=== PATIENT | female | born 1970 | race Caucasian/White ===

== ENCOUNTER 2024-04-06 10:04 | Emergency (ER) | payer MEDICAID, SELFPAY ==
--- NOTE | ~2024-04-06 | CT_ITS ---
EXAMINATION: CT head/brain wo IV con (accession [id number]) CT cervical spine wo IV con (accession [id number]) CLINICAL INFORMATION: fall, pain, injury COMPARISON: None TECHNIQUE: Separate noncontrast CT examinations of the head and cervical spine were performed. Coronal and sagittal reformats were obtained at the acquisition workstation. This CT examination was performed using dose optimization techniques as appropriate, variously including the following: * Automated exposure control * Adjustment of mA and/or kV according to patient size (this includes techniques or standardized protocols for targeted exams where dose is matched to indication/reason for exam; i.e. extremities or head) * Use of iterative reconstruction technique DLP: 768 mGy-cm FINDINGS: HEAD: There is no evidence of acute intracranial hemorrhage or territorial infarction. Lyles to white matter differentiation is well preserved. No abnormal mass effect or midline shift is seen. No extra-axial fluid collections are identified. No hydrocephalus. No significant volume loss. There is no abnormal attenuation within the brain parenchyma. The cerebellar tonsils are well positioned. Soft tissue laceration over the left frontal bone without underlying calvarial fracture. Visualized portions of the orbits are unremarkable. The mastoid air cells and visualized portions of the paranasal sinuses are well aerated. CERVICAL SPINE: No evidence of acute fracture or traumatic subluxation of the cervical spine. There is straightening of the normal cervical curvature. Mild anterolisthesis of C4 on C5 and mild retrolisthesis of C5 on C6. Moderate degenerative disc disease from C5 to C7 with loss of intervertebral disc height and marginal osteophytes. Severe bilateral neural foraminal posteriorly projecting disc osteophyte complex at C5-C6 results in mild canal stenosis. Stenosis at C5-C6. Vertebral body heights are maintained. The atlantoaxial and atlantooccipital articulations are intact. No prevertebral soft tissue swelling. Biapical pleural-parenchymal scarring. There is no cervical lymphadenopathy. The visualized thyroid gland is unremarkable. CT/CT cervical spine wo IV con IMPRESSION: 1. No acute intracranial pathology. Soft tissue laceration over the left frontal bone without underlying calvarial fracture. 2. No acute osseous abnormality within the cervical spine. 3. Moderate degenerative disc disease from C5 to C7. Severe bilateral neural foraminal stenosis at C5-C6. Electronically signed by: Anna Schumacher DO 04/06/2024 01:44 PM EDT
--- NOTE | ~2024-04-06 | CT_ITS ---
EXAMINATION: CT head/brain wo IV con (accession [id number]) CT cervical spine wo IV con (accession [id number]) CLINICAL INFORMATION: fall, pain, injury COMPARISON: None TECHNIQUE: Separate noncontrast CT examinations of the head and cervical spine were performed. Coronal and sagittal reformats were obtained at the acquisition workstation. This CT examination was performed using dose optimization techniques as appropriate, variously including the following: * Automated exposure control * Adjustment of mA and/or kV according to patient size (this includes techniques or standardized protocols for targeted exams where dose is matched to indication/reason for exam; i.e. extremities or head) * Use of iterative reconstruction technique DLP: 768 mGy-cm FINDINGS: HEAD: There is no evidence of acute intracranial hemorrhage or territorial infarction. Lyles to white matter differentiation is well preserved. No abnormal mass effect or midline shift is seen. No extra-axial fluid collections are identified. No hydrocephalus. No significant volume loss. There is no abnormal attenuation within the brain parenchyma. The cerebellar tonsils are well positioned. Soft tissue laceration over the left frontal bone without underlying calvarial fracture. Visualized portions of the orbits are unremarkable. The mastoid air cells and visualized portions of the paranasal sinuses are well aerated. CERVICAL SPINE: No evidence of acute fracture or traumatic subluxation of the cervical spine. There is straightening of the normal cervical curvature. Mild anterolisthesis of C4 on C5 and mild retrolisthesis of C5 on C6. Moderate degenerative disc disease from C5 to C7 with loss of intervertebral disc height and marginal osteophytes. Severe bilateral neural foraminal posteriorly projecting disc osteophyte complex at C5-C6 results in mild canal stenosis. Stenosis at C5-C6. Vertebral body heights are maintained. The atlantoaxial and atlantooccipital articulations are intact. No prevertebral soft tissue swelling. Biapical pleural-parenchymal scarring. There is no cervical lymphadenopathy. The visualized thyroid gland is unremarkable. CT/CT head/brain wo IV con IMPRESSION: 1. No acute intracranial pathology. Soft tissue laceration over the left frontal bone without underlying calvarial fracture. 2. No acute osseous abnormality within the cervical spine. 3. Moderate degenerative disc disease from C5 to C7. Severe bilateral neural foraminal stenosis at C5-C6. Electronically signed by: Anna Schumacher DO 04/06/2024:44 PM EDT
[2024-04-06 10:44] VITALS: BP 127/83; PULSE 84; RESP 14; TEMP 36.7; O2SAT 97; BMI 21.3
[2024-04-06 11:58] VITALS: BP 136/68; PULSE 79; RESP 16; TEMP 36.9; O2SAT 97
--- NOTE | 2024-04-06 12:00 | ED_ITS ---
HPI - Head Injury General Chief complaint: Head Injury Stated complaint: l forehead wound Time Seen by Provider: 04/06/24 11:43 Source: patient Mode of arrival: ambulatory Limitations: no limitations History of Present Illness ED Provider: SHILPA HPI Narrative: 53 yo female with PMH of orthostatic hypotension no recent travel not on OCPs, no prior CAD. She notes she has frequent bouts of dizziness and near blacking out but no syncope. Last night similar near blacking out but this time actually syncopized and hit head on corner of sink. She was not on ground for a long time but still has laceration so she came to get checked out. NO recent infectious, GIB symptoms, CP/SOB. Otherwise at her baseline MD Complaint: head injury Onset (ago): day(s) (last night) Mechanism of Injury: fall (syncope) Place: home Loss of Consciousness: yes Location of injury: frontal Severity: mild Quality: dull Radiation: none Other Injuries: laceration Associated symptoms: syncope Related Data Allergies Allergy/AdvReac Type Severity Reaction Status Date / Time bupropion [From Wellbutrin] AdvReac Hives Verified 04/06/24 10:48 Review of Systems 2 Review of Systems: Constitutional : No Fever, No Chills, No Fatigue ENT/Mouth : No sore throat, No Rhinorrhea Eyes: No Eye Pain, No Swelling, No Redness Cardiovascular : No Chest Pain, No SOB, No Dyspnea on Exertion, pos syncope Respiratory : No Cough, No Sputum Gastrointestinal : No Nausea, No Vomiting, No Diarrhea, No abdominal Pain Genitourinary : No Dysuria, No Urinary Frequency, No Hematuria, Musculoskeletal : No joint pain, No Myalgias, No Joint Swelling Skin : No Skin Lesions, No rash, pos laceration Neuro : No Weakness, No Numbness, No Dizziness, positive Headache Psych : No Anxiety/Panic, No Depression Heme/Lymph: No Bruising, No Bleeding,No Lymphadenopathy Endocrine : No Polyuria, No Polydipsia All other systems reviewed and are negative [facility] Past Medical History Attestation statement: The following information was validated with the patient. Source: old records reviewed Medical History Orthostatic hypotension Multiple sclerosis Social History Social History (Updated 04/06/24 @ 12:57 by Taya Arredondo DO) Patient Tobacco Use Status: Never used Tobacco Smoked in Last 30 Days: No Use of substances other than those prescribed or required for medical reasons: No Advance Directives: No Advance Directives Information Provided: No Do you have a plan to hurt others: No Plan Patient : No Physical Exam 2 Vital Signs: Vital Signs: Last Vital Signs Temp 98.4 F 04/06/24 11:58 Pulse 79 04/06/24 11:58 Resp 16 04/06/24 11:58 BP 136/68 04/06/24 11:58 Pulse Ox 97 04/06/24 11:58 O2 Del Method Room Air 04/06/24 11:58 BMI result Body Mass Index 21.3 Appearance: Alert. Oriented X3. No acute distress. Eyes: Pupils equal, round and reactive to light. ENT: Pharynx normal. L forehead above eyebrow x shaped stellate laceration 2cm subq with some tissue avulsion she admits to removing a piece of hanging skin Neck: Normal inspection. Neck supple. CVS: Normal heart rate and rhythm. Pulses normal. Respiratory: No respiratory distress. Breath sounds normal. Abdomen: Soft and nontender. Skin: Skin warm and dry. Normal skin color. Normal skin turgor. Extremities: No lower extremity edema. No calf ttp Neuro: Oriented X 3. No motor deficit. No sensory deficit. Medications Administered Discontinued Medications Generic Name Dose Route Start Last Admin Trade Name Freq PRN Reason Stop Dose Admin Lidocaine HCl 5 ml 04/06/24 11:51 04/06/24 12:47 Lidocaine Hcl 1 % Mpf 5 Ml Vial SUBCUT 04/06/24 11:52 5 ml ONCE ONE Administration Medical Decision Making Medical Decision Making [facility] Narrative: 53 yo female with PMH of orthostatic hypotension, MS here with c/o syncope last night with typical episode in setting of near black out but this time syncope and head strike at this time will need basic labs, EKG, troponin and ddimer, CT head / cspine - she has no CP/SOB and no infectious or GIB sypmtoms. Sutures ordered for forehead injury. Differential Diagnosis Differential Diagnoses: The differential diagnosis associated with the presentation includes syncope, dehydration, lyte abnormality, chronic orthostatics - admits to not drinking enough fluids yesterday Admission/Observation Consideration of admission/observation: Escalation of care including admission/observation considered ambulating today no issues GCS 15 work up negative feels much better stable for DC Lab Data [facility] Lab Attestation statement: I reviewed the patient's lab results. 04/06/24 13:13 04/06/24 13:13 Labs: Lab Results 04/06/24 Range/Units 13:13 WBC 3.8 L (4.8-10.8) X10*3/uL RBC 4.70 (4.20-5.50) X10*6/uL Hgb 13.4 (12.0-16.0) g/dl Hct 39.0 (37.0-47.0) % MCV 83.0 (80.0-98.0) fL MCH 28.5 (27.0-33.0) pg MCHC 34.4 (31.0-35.0) g/dl RDW 12.5 (11.0-16.0) % Plt Count 252 (160-400) X10*3/uL MPV 9.2 L (9.4-12.3) fL Immature Gran % (Auto) 0.0 (0.0-0.4) % Neut % (Auto) 60.7 (45-73) % Lymph % (Auto) 29.3 (20-40) % [place] % (Auto) 7.1 (2-11) % Eos % (Auto) 2.1 (0-4) % Baso % (Auto) 0.8 (0-2) % Lymph # (Auto) 1.1 L (1.2-4.9) X10*3/uL [place] # (Auto) 0.3 (0.1-1.2) X10*3/uL Eos # (Auto) 0.1 (0.0-0.4) X10*3/uL Baso # (Auto) 0.0 (0.0-0.2) X10*3/uL Abs Immat Gran (auto) 0.00 (0.00-0.03) X10*3/uL Absolute Neuts (auto) 2.3 (2.0-8.3) x10*3/uL Absolute Nucleated RBC 0.000 (0.0-0.012) X10*3/uL Nucleated RBC % (auto) 0.0 (0.0-0.2) /100WBC D-Dimer High Sensitivty < 150 NG/ML Sodium 139 (135-145) mmol/L Potassium 3.9 (3.3-5.1) mmol/L Chloride 105 (96-108) mmol/L Carbon Dioxide 29 (22-29) mmol/L Anion Gap 9 L (12-20) BUN 23 H (9-16) mg/dL Creatinine 0.76 (0.5-1.4) mg/dL Estim Creat Clear Calc 70.8 Estimated GFR > 60 Random Glucose 91 (60-115) mg/dL Calcium 9.3 (8.4-10.2) mg/dL Magnesium 2.3 (1.6-2.6) mg/dL Total Creatine Kinase 82 (26-140) U/L Troponin I High Sens < 2.7 (<3.5-17.0) ng/L Independent Interpretation I performed an independent interpretation of an: EKG and CT Scan (no trauma) Interpretation: Rate: 76 Rhythm: NSR [place]: normal Normal P waves. Normal ANDREY. Normal QRS complex. ST T wave : inverted t waves V1-V4 no CLARK qTC: 463 prior studies: no prior The study has been interpreted contemporaneously by me. . Radiology Impression Discussion of test interpretation with radiology: I have reviewed the radiologist's reading. Procedures Laceration Laceration 1: Site: face Side (If applicable): left Size (cm): 2 Description: stellate Depth: simple, single layer Local Anesthetic: lidocaine 1% Amount of anesthesia used (mL): 2 Pre-repair: wound explored, irrigated extensively and deep structures intact Skin layer closed with: other (prolene) Size (cm): 6-0 Number of sutures: 2 Technique: simple, interrupted Discharge Plan Discharge Clinical Impression: Closed head injury Qualifiers: Encounter type: initial encounter Qualified Code(s): S09.90XA - Unspecified injury of head, initial encounter Facial laceration Qualifiers: Encounter type: initial encounter Qualified Code(s): S01.81XA - Laceration without foreign body of other part of head, initial encounter Syncope Qualifiers: Syncope type: unspecified Qualified Code(s): R55 - Syncope and collapse Patient Disposition: Home, Self-Care Instructions: Head Injury (ED), Laceration (ED), Syncope (ED) Additional Instructions: sutures out in 5 days okay to shower return for worsening symptoms chest pain, dizziness, fainting black or bloody stools or any other concerns lytes are normal today you had nonspecific EKG changes but blood clot test and test for heart attack are negative CT scans of head and neck no acute trauma - some chronic disc ds CT/CT cervical spine wo IV con IMPRESSION: 1. No acute intracranial pathology. Soft tissue laceration over the left frontal bone without underlying calvarial fracture. 2. No acute osseous abnormality within the cervical spine. 3. Moderate degenerative disc disease from C5 to C7. Severe bilateral neural foraminal stenosis at C5-C6 Referrals: [facility] [Provider Group] Print Language: Portuguese
--- NOTE | 2024-04-06 12:01 | PC.NURSE ---
patient from home, states she got up to go to the bathroom and got up too fast and got dizzy,patient states she remembers getting up to use the bathroom then remembers waking up on the floor. states dizziness is something she experiences often, states she didnt eat much yesterday and thinks that is probably why, patient with approximately 1cm round wound above left eyebrow thinks she may have hit the corner of the sink, pt PERRLA, denies headache or blurred vision, denies nausea or vomiting, denies recent illness. MD at bedside to assess pt.
--- NOTE | 2024-04-06 12:16 | ECG_ITS ---
Test Reason : syncope Blood Pressure : / mmHG Vent. Rate : 076 BPM Atrial Rate : 076 BPM P-R Int : 172 ms QRS Dur : 070 ms QT Int : 412 ms P-R-T Axes : 075 050 063 degrees QTc Int : 463 ms Normal sinus rhythm Possible Left atrial enlargement Nonspecific ST and T wave abnormality anterior leads Abnormal ECG No previous ECGs available Referred By: Taya Arredondo Electronically Signed By:HAMILTON PENA
[2024-04-06] MEDS: Lidocaine HCl 1 % MPF 5 ML VIAL SUBCUT (12:47)
[2024-04-06 13:19] LABS: MANUAL DIFF FLAG NO
[2024-04-06 13:21] LABS: Basophils Percent Auto 0.8 % (0-2); Eosinophils Absolute Auto 0.1 X10*3/uL (0.0-0.4); Eosinophils Percent Auto 2.1 % (0-4); Hemoglobin 13.4 g/dl (12.0-16.0); Lymphocytes Absolute Auto 1.1 X10*3/uL (1.2-4.9); Lymphocytes Percent Auto 29.3 % (20-40); Mean Corpuscular HGB Conc 34.4 g/dl (31.0-35.0); Mean Corpuscular Hemoglobin 28.5 pg (27.0-33.0); Mean Platelet Volume 9.2 fL (9.4-12.3); Monocytes Absolute Auto 0.3 X10*3/uL (0.1-1.2); Monocytes Percent Auto 7.1 % (2-11); Neutrophils Absolute Auto 2.3 x10*3/uL (2.0-8.3); Neutrophils Percent Auto 60.7 % (45-73); Platelet Count 252 X10*3/uL (160-400); Red Cell Distribution Width 12.5 % (11.0-16.0); White Blood Count 3.8 X10*3/uL (4.8-10.8)
[2024-04-06 13:27] LABS: D Dimer High Sensitivity < 150 NG/ML
[2024-04-06 13:33] LABS: Anion Gap 9 (12-20); Blood Urea Nitrogen 23 mg/dL (9-16); Calcium 9.3 mg/dL (8.4-10.2); Carbon Dioxide 29 mmol/L (22-29); Chloride 105 mmol/L (96-108); Creatinine Clr Calc Pharmacy 70.8; Estimated Glomerular Filt Rate > 60; Glucose Random 91 mg/dL (60-115); Magnesium 2.3 mg/dL (1.6-2.6); Potassium 3.9 mmol/L (3.3-5.1); Sodium 139 mmol/L (135-145)
[2024-04-06 13:41] LABS: Troponin-I High Sensitivity < 2.7 ng/L (<3.5-17.0)
[2024-04-06 14:03] VITALS: BP 122/65; PULSE 80; RESP 16; TEMP 36.9; O2SAT 98
== END 2024-04-06 14:03 | disposition home or self-care (01) ==
PROVIDERS: Emergency Provider Emergency Medicine
DX: S01.81XA Laceration without foreign body of other part of head, initial encounter (principal); R55 Syncope and collapse; R94.31 Abnormal electrocardiogram [ECG] [EKG]; M54.2 Cervicalgia; R51.9 Headache, unspecified; R42 Dizziness and giddiness; W01.10XA Fall on same level from slipping, tripping and stumbling with subsequent striking against unspecified object, initial encounter; Y93.89 Activity, other specified; Y92.091 Bathroom in other non-institutional residence as the place of occurrence of the external cause; Y99.8 Other external cause status
CPT/HCPCS: 36415; 70450; 72125; 80048; 82550; 83735; 84484; 85025; 85379; 93005; 99285; J2003

== ENCOUNTER → 2024-04-06 12:16 | Outpatient (BNV) | payer MEDICAID, SELFPAY | PROVIDERS: Emergency Provider Emergency Medicine; Visit Provider Internal Medicine | DX: R94.31 Abnormal electrocardiogram [ECG] [EKG] (principal) | CPT/HCPCS: 93010 ==

== ENCOUNTER 2024-04-11 15:24 | Emergency (ER) | payer MEDICAID, SELFPAY ==
[2024-04-11 16:04] VITALS: BP 128/43; PULSE 77; RESP 16; TEMP 35.9; O2SAT 99; BMI 21.1
--- NOTE | 2024-04-11 16:14 | ED_ITS ---
HPI - Wound/Laceration General Chief Complaint: Wound/Laceration Stated Complaint: Suture removal Time Seen by Provider: 04/11/24 16:14 Source: patient Limitations: no limitations History of Present Illness ED Provider: Danuta Latham PA-C HPI narrative: 53-year-old female presents for suture removal. Related Data Allergies Allergy/AdvReac Type Severity Reaction Status Date / Time bupropion [From Wellbutrin] AdvReac Hives Verified 04/11/24 16:08 Review of Systems Review of Systems: Yes all other systems are reviewed and are negative Constitutional: Constitutional: Denies fatigue and Denies fever(s) Endocrine: Endocrine: Denies fatigue PMFSH Past Medical History Attestation statement: The following information was validated with the patient. Medical History Orthostatic hypotension Multiple sclerosis Social History Social History (Updated 04/06/24 @ 12:57 by Taya Arredondo DO) Patient Tobacco Use Status: Never used Tobacco Advance Directives: No Advance Directives Information Provided: Yes Do you have a plan to hurt others: No Plan Physical Exam Vital Signs: Vital Signs: Last Vital Signs Temp 96.6 F L 04/11/24 16:04 Pulse 77 04/11/24 16:04 Resp 16 04/11/24 16:04 BP 128/43 L 04/11/24 16:04 Pulse Ox 99 04/11/24 16:04 O2 Del Method Room Air 04/11/24 16:04 BMI result Body Mass Index 21.1 Const: Other: Alert, well in appearance, healing laceration noted over left brow, [address] Orientation/consciousness: patient oriented x3 Resp: Effort & Inspection: normal respiratory effort Cardio: Other: Normal peripheral perfusion Neuro: General: patient oriented x3, no focal motor deficits and CN's II-XI intact bilaterally Psych: Other: Cooperative, anxious Medical Decision Making Medical Decision Making MDM Narrative: 53-year-old female presents for suture removal. Stitches removed Discharge Plan Discharge Clinical Impression: Visit for suture removal Patient Disposition: Home, Self-Care Additional Instructions: The 2 sutures were removed. You can apply bacitracin to the site to help promote the healing process. Watch for signs of infection which would include redness, swelling, pus draining from the site or fever. If you develop any of these symptoms, seek medical attention. Discharge Date/Time: 04/11/24 16:42 Print Language: Amharic
== END 2024-04-11 16:42 | disposition home or self-care (01) ==
LOC: HO.ED 16:42
PROVIDERS: Emergency Provider Emergency Medicine
DX: Z48.02 Encounter for removal of sutures (principal)
CPT/HCPCS: 99281